=== PATIENT | female | born 1935 | race Hispanic/Latino ===

== ENCOUNTER → 2018-06-13 | Day surgery (SDC) | payer MEDICARE ==
[2018-06-12 12:23] VITALS: BMI 25.8
[~2018-06-13] MED LIST: Iodixanol 320 MG/ML 100 ML BOTTLE IV ONE; Lidocaine 2% MPF (5 ml) Inj ONE; Midazolam 2 MG/2 ML VIAL ONE
[2018-06-13 07:32] LABS: BASO # 0.2 K/uL (0.0-0.2); EOS # 0.3 K/uL (0.0-0.7); EOS % 3.4 % (0.0-4.0); HEMOGLOBIN 12.6 g/dL (11.0-16.0); LYMPH # 1.2 K/uL (1.0-4.3); LYMPH % 15.9 % (20.0-40.0); MEAN CELL VOLUME 89.3 fL (81.0-99.0); MEAN CORPUSCULAR HEMOGLOBIN 30.5 pg (27.0-31.0); MEAN CORPUSCULAR HGB CONC 34.2 g/dL (33.0-37.0); MEAN PLATELET VOLUME 8.5 fL (7.2-11.7); MONO # 0.7 K/uL (0.0-0.8); MONO % 9.5 % (0.0-10.0); NEUT # 5.3 K/uL (1.8-7.0); NEUT % 69.2 % (50.0-75.0); RBC 4.12 Mil/uL (3.80-5.20); RED CELL DISTRIBUTION WIDTH 15.1 % (11.5-14.5); WHITE BLOOD COUNT 7.6 K/uL (4.8-10.8)
[2018-06-13 07:50] LABS: BLOOD UREA NITROGEN 26 mg/dL (7-17); CALCIUM 9.5 mg/dl (8.6-10.4); GFR NON-AFRICAN AMERICAN > 60; PROTHROMBIN TIME 10.8 SECONDS (9.7-12.2)
[2018-06-13 08:16] LABS: VENOUS BLOOD GAS BASE EXCESS 2.6 mmol/L (0.0-2.0); VENOUS BLOOD GAS PCO2 55 mmHg (40-60); VENOUS BLOOD GAS PO2 37 mm/Hg (30-55); VENOUS BLOOD PH 7.34 (7.32-7.43)
[2018-06-13 08:19] LABS: ARTERIAL BLOOD GAS HEMOGLOBIN 11.6 g/dL (11.7-17.4); ARTERIAL BLOOD GAS O2 SAT 94.2 % (95-98); ARTERIAL BLOOD GAS PCO2 56 mm/Hg (35-45); ARTERIAL BLOOD GAS PH 7.35 (7.35-7.45); ARTERIAL BLOOD GAS PO2 64 mm/Hg (80-100); ARTERIAL BLOOD GAS TCO2 32.6 mmol/L (22-28)
--- NOTE | 2018-06-13 19:57 | CARDCATH ---
Copied To: Vincent Salvador MD Attending MD: Vincent Salvador MD PROCEDURE DATE: 06/13/2018 INDICATIONS: Mary is an 82-year-old female with past medical history significant for hypertension, dyslipidemia, diabetes mellitus, who presented for evaluation of severe aortic stenosis. She underwent exercise treadmill stress test. She came to symptoms and was not able to walk pass ten seconds secondary to fatigue, lethargy, and near syncope. PROCEDURES PERFORMED: Complete heart catheterization with selective left and right coronary angiogram, right heart catheterization with hemodynamic, simultaneous left ventricular and aortic pressures for evaluation of aortic stenosis. TECHNIQUES OF PROCEDURE: After obtaining informed consent, the patient was brought to the cardiac cath suite in post absorptive, non-sedated state. The patient was prepped and draped in the usual sterile fashion. A 2% lidocaine was used for infiltration of anesthesia. Using modified Seldinger technique, a 6-Belizean sheath was introduced into the right femoral artery and 7-Belizean sheath was introduced into the right femoral vein. Subsequently under fluoroscopic guidance, the right heart catheter was advanced early through the IVC, into the RA, RVP, and wedge position. Hemodynamic and saturations were obtained. Pulmonary capillary wedge pressure was 14 mmHg. Pulmonary artery pressure was 40/30 with mean of 24. Using the thermodilution method, cardiac output was calculated to be 2.89 and cardiac index of 2.2. Subsequently through the 6-Belizean right femoral arterial access over a J-wire, JL4 and JR4 diagnostic catheters were used to engage the left and right coronary systems. Angiograms were obtained in different orthogonal views. CORONARY ANATOMY: Left main is a large size vessel, bifurcates into LAD and circ. LAD at the proximal segment has a nonobstructive 40% stenosis, right at the diagonal has about 55% stenosis, ostial diag 60%, medium size vessel. LAD after the second diagonal has about 60% stenosis. Left circumflex is a large-sized vessel, runs in the AV groove and gives off one obtuse marginal branch with mild nonobstructive disease. RCA anterior takeoff, large size vessel, had proximal 45% stenosis, right dominant circulation. IMPRESSION: Nonobstructive coronary artery disease, mild pulmonary hypertension, mildly elevated filling pressures, [id number] gradient was 105 mmHg, mean transaortic gradient was 17 mmHg, aortic valve area was , cardiac output was 4.27 and was calculated to be 0.43 centimeter squared. Severe aortic stenosis and nonobstructive coronary artery disease. RECOMMENDATIONS: The patient is to be evaluated for TAVR within the next week. Vincent Salvador MD
[2018-06-14 13:10] VITALS: RESP 11; O2SAT 96
== END | disposition home or self-care (01) ==
LOC: C.CATHLAB 06:36
PROVIDERS: ATTEND Internal Medicine Interventional Cardiology
DX: I35.0 Nonrheumatic aortic (valve) stenosis (principal); I10 Essential (primary) hypertension; I25.10 Atherosclerotic heart disease of native coronary artery without angina pectoris; E11.9 Type 2 diabetes mellitus without complications; E78.5 Hyperlipidemia, unspecified; I27.20 Pulmonary hypertension, unspecified; Z45.2 Encounter for adjustment and management of vascular access device
CPT/HCPCS: 36415; 80048; 82803; 85025; 85610; 85730; 93453; 99152; 99153; C1714; C1729; C1760; C1769; C1887; C1893; C1894; J1644; J2250; J3010; Q9967